=== PATIENT | male | born 1930 | race Caucasian/White ===

== ENCOUNTER 2017-04-27 16:01 | Emergency (ER) | payer MEDICARE, BC ==
[2017-04-27] MEDS ORDERED: Albuterol Sulfate 2.5 mg/3 ml Neb ONE (16:29)
[2017-04-27] MEDS ORDERED: Albuterol Sulfate 2.5 mg/0.5 ml Neb ONE (16:29)
[2017-04-27 16:52] LABS: Bilirubin Negative (Negative); Blood, Urine Moderate (Negative); Clarity TURBID (Clear); Glucose, Urine (Dipstick) Negative (Negative); Leukocyte Large (Negative); Nitrite Positive (Negative); Protein, Urine (Dipstick) Negative (Neg-Trace); Specific Gravity, Urine 1.019 (1.002-1.036); pH, Urine 5.5 (5.0-9.0)
[2017-04-27 16:53] LABS: Bacteria/HPF 4+ HPF (None Seen); Pathc Cast-AUWi Flag 1.49 (0-2.49); Squamous Epithelial 0-3 HPF (0-3)
[2017-04-27 16:57] LABS: Hemoglobin 11.9 g/dL (14.0-18.0); Mean Corpuscular Hemoglobin 32.1 pg (27.0-31.0); Mean Platelet Volume 9.3 fL (7.4-10.4); Platelet Count 106 thou/uL (130-400); RBC Distribution Width 13.5 % (11.5-14.5); Red Blood Cell (RBC) Count 3.71 mill/uL (4.70-6.10); White Blood Cell (WBC) Count 8.6 thou/uL (4.8-10.8)
[2017-04-27 17:04] LABS: Hyaline Casts/LPF 7-10 HYALINE CAST LPF (0-3 Hyaline); Renal Epithelial 0-3 HPF (0-3); Transitional Epithelial 0-3 HPF (0-3)
--- NOTE | 2017-04-27 17:05 | RAD ---
ONE VIEW CHEST: 04/27/17 COMPARISON: 06/12/14 HISTORY: Cough. Possible pneumonia. FINDINGS: Stable left sided defibrillator and sternotomy wires. There is atherosclerosis of the aorta. Normal c ardiac silhouette. The pulmonary vessels and hilum are normal. Right costophrenic angle is clear. Ple ural and parenchymal changes in the left lung base. No pneumothorax. No osseous abnormality. IMPRESSION: 1. Pleural and parenchymal changes of the left lung base. 2. Continued surveillance. POS: [facility]
[2017-04-27 17:22] LABS: Band 15 % (5-11); Elliptocytes SLIGHT = 2-5 cells (100X) (0-1/hpf); Lymphocytes 8 % (21-51); MDiff Complete? YES; Macrocytosis SLIGHT = 6-15 cells (100X) (0-5/hpf); Monocytes 12 % (0-10); Neutrophil 65 % (42-75); Ovalocytes SLIGHT = 2-5 cells (100X) (0-1/hpf); PLT Morphology Comment Appears Decreased; Polychromasia SLIGHT = 2-3 cells (100X) (0-2/hpf)
[2017-04-27 17:23] LABS: ALT (SGPT) 20 U/L (8-55); AST (SGOT) 30 U/L (5-34); Albumin 3.1 g/dL (3.4-4.8); Alkaline Phosphatase 130 U/L (40-150); Anion Gap 13 mmol/L (10-20); BUN (Urea Nitrogen) 32 mg/dL (8.4-25.7); Calc. Creatinine Clearance 0 mL/min (70-130); Calcium 9.1 mg/dL (7.8-10.44); Carbon Dioxide 23 mmol/L (23-31); Chloride 107 mmol/L (98-107); Estimated GFR-MDRD 71; Globulin 3.7 g/dL (2.4-3.5); Glucose 99 mg/dL (83-110); Potassium 3.9 mmol/L (3.5-5.1); Protein, Total 6.8 g/dL (5.8-8.1); Sodium 139 mmol/L (136-145)
[2017-04-27] MEDS ORDERED: Acetaminophen 500 MG TAB ONE (22:05)
[2017-04-28 11:25] LABS: Base Excess-Venous 2.3 mmol/L (-30.0-30.0); Bicarbonate (HCO3v) 26.3 mmol/L (1.0-85.0); CO2 Tension (PvCO2) 37.7 mmHg (41.0-51.0); Hemoglobin - Calc 12.4 g/dL (12.0-18.0); O2 Tension (PvO2) 66.7 mmHg (35.0-45.0); pH (Venous) 7.452 (7.35-7.45); vO2 Saturation-calc 93.9 % (0.0-100.0)
[2017-04-28 11:26] LABS: Calcium, Ionized 1.14 mmol/L (1.12-1.32); Lactate 1.09 mmol/L (0.50-2.20); Potassium 3.8 mmol/L (3.4-4.7); T. Carbon Dioxide 27.5 mmol/L (1.0-85.0)
== END 2017-04-27 22:11 | disposition home or self-care (01) ==
LOC: ERS 16:01
DX: J40 Bronchitis, not specified as acute or chronic (principal); N39.0 Urinary tract infection, site not specified; E03.9 Hypothyroidism, unspecified; E78.5 Hyperlipidemia, unspecified; F32.9 Major depressive disorder, single episode, unspecified; Z87.891 Personal history of nicotine dependence; Z79.82 Long term (current) use of aspirin; Z79.899 Other long term (current) drug therapy
CPT/HCPCS: 51701; 71045; 80053; 81003; 81015; 82330; 82435; 82803; 82947; 83605; 83880; 84132; 84295; 85014; 85025; 87077; 87086; 87186; 94640; 96361; 96374; J0696; J7611

== ENCOUNTER 2017-05-25 09:30 | Outpatient (CLI) | payer MEDICARE, BC ==
[~2017-05-25 09:30] MED LIST: Sodium Chloride 0.9% 15 ML NEB ONE
--- NOTE | 2017-05-25 12:04 | HP ---
DATE OF SERVICE: 05/25/2017 HISTORY OF PRESENT ILLNESS: Mr. Miguel Bishop Jr., is an 86-year-old gentleman, who presents to the [facility] Center for evaluation of a coccygeal ulceration. The patient resides at [facility]. [facility] was referred to the Wound Center by Dr. Faye. The patient has no other complaints today. He denies any fever or chills. PAST MEDICAL HISTORY: 1. Hypertension. 2. DJD. 3. Coronary artery disease. 4. Diabetes mellitus. 5. Gastroesophageal reflux disease. 6. Benign prostatic hypertrophy. 7. Congestive heart failure. 8. Anemia, iron deficiency. 9. History of atrial flutter/atrial fibrillation. 10. Hypothyroidism. PAST SURGICAL HISTORY: 1. Coronary artery bypass grafting on 3 separate occasions. 2. Bilateral knee replacement. 3. Appendectomy. 4. 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 MEDICATIONS: 1. Amiodarone. 2. Aspirin 81 mg. 3. Celexa. 4. Cranberry plus vitamin C. 5. Colace. 6. Fexofenadine. 7. Lasix. 8. Klor-Con. 9. Levothyroxine. 10. Lipitor. 11. Ocuvite. 12. Valsartan. 13. Vitamin D3. ALLERGIES: No known diagnosed allergies. SOCIAL HISTORY: Negative for current tobacco or ETOH use. FAMILY HISTORY: Noncontributory. PHYSICAL EXAMINATION: VITAL SIGNS: Temperature 98.1, pulse 77, respirations 22, blood pressure 103/51. GENERAL: An 86-year-old gentleman, lying on stretcher in examination room, in no acute distress. HEENT: Normocephalic, atraumatic. NECK: No nuchal rigidity. CHEST: Clear to auscultation. CARDIOVASCULAR: Regular. ABDOMEN: Soft. EXTREMITIES: No clubbing or cyanosis. BACK: A coccygeal ulceration is present, which measures approximately 3.0 x 2.0 cm. Necrotic and no nviable tissue present within the wound margins was debrided with an excisional full-thickness debrid ement. No purulent drainage is associated with the wound. No erythema of the skin surrounding the w ound is present. No maceration of the skin of the periwound is noted. ASSESSMENT AND PLAN: 1. Coccygeal ulceration as described above. Dressing changes of [place], 4 x 4s, and bordered gau ze will be initiated today. These dressing changes are to be performed on a daily basis after cleans ing and irrigation at [facility]. No antibiotics will be prescribed today based upon the appearance of the wound. I will see Mr. Bishop again in 2 weeks. Orders will be transmitted to [facility] for offloading of the coccygeal ulceration with position changes q.2 hours. 2. Hypertension. 3. Degenerative joint disease. 4. Coronary artery disease. 5. Diabetes mellitus. The patient's Accu-Chek in clinic today is 111. The patient has been told th at for optimal wound healing, his blood glucoses should remain below 150. 6. Gastroesophageal reflux disease. 7. Benign prostatic hypertrophy. 8. Congestive heart failure. 9. Anemia, iron deficiency. 10. History of atrial flutter/atrial fibrillation. 11. Hypothyroidism.
== END 2017-05-25 09:31 | disposition home or self-care (01) ==
LOC: WCC 09:30
PROVIDERS: ATTEND Family Medicine
DX: S31.000D Unspecified open wound of lower back and pelvis without penetration into retroperitoneum, subsequent encounter (principal)
CPT/HCPCS: 11042; 82962; 97139; G0463; 36416; 99204; A4218

== ENCOUNTER → 2018-02-13 | Day surgery (SDC) | payer MEDICARE, BC ==
[2018-02-08 12:35] VITALS: BMI 35.9
[~2018-02-13] MED LIST changes: +PROPOFOL 200 MG/20 ML VIAL ONE; -Sodium Chloride 0.9% 15 ML NEB ONE
[2018-02-13 08:06] LABS: INR-International Normal Ratio 1.5; PTT 30.2 SEC (22.9-36.1); Prothrombin Time 17.7 SEC (12.0-14.7)
[2018-02-13 08:09] LABS: #Eosinphils 0.4 thou/uL (0.0-0.7); #Lymphocytes 1.4 thou/uL (1.20-3.40); #Monocytes 0.9 thou/uL (0.11-0.59); #Neutrophils 3.4 thou/uL (1.40-6.50); %Basophils 0.4 % (0.0-1.0); %Eosinophils 6.4 % (0.0-10.0); %Lymphocytes 22.8 % (21.0-51.0); %Monocytes 14.9 % (0.0-10.0); %Neutrophils 55.5 % (42.0-75.0); Hemoglobin 11.2 g/dL (14.0-18.0); Mean Corpuscular HGB CONC 32.8 g/dL (32.0-36.0); Mean Corpuscular Hemoglobin 32.6 pg (27.0-31.0); Mean Corpuscular Volume 99.5 fL (78.0-98.0); Mean Platelet Volume 8.8 fL (7.4-10.4); Platelet Count 141 thou/uL (130-400); RBC Distribution Width 14.7 % (11.5-14.5); Red Blood Cell (RBC) Count 3.42 mill/uL (4.70-6.10); White Blood Cell (WBC) Count 6.2 thou/uL (4.8-10.8)
[2018-02-13 08:16] LABS: Anion Gap 12 mmol/L (10-20); BUN (Urea Nitrogen) 22 mg/dL (8.4-25.7); Calc. Creatinine Clearance 93 mL/min (70-130); Calcium 9.2 mg/dL (7.8-10.44); Carbon Dioxide 27 mmol/L (23-31); Chloride 108 mmol/L (98-107); Estimated GFR-MDRD 69; Glucose 82 mg/dL (83-110); Potassium 4.1 mmol/L (3.5-5.1); Sodium 143 mmol/L (136-145)
--- NOTE | 2018-02-13 09:31 | OP ---
DATE OF PROCEDURE: 02/14/2108 REFERRING PHYSICIAN: Dr. Tate Brown SURGEON: Dr. Eliu Jeffers PROCEDURE: Electrocardioversion report. REASON FOR PROCEDURE: Mr. Bishop is an 87-year-old man with history of CTI ablation, now atrial fibri llation were suppressed with amiodarone, but now persisting, here for a DANY guided cardioversion. TE E negative prior to procedure for any intracardiac clots. His LVEF is near normal, and moderate aortic stenosis is present. PROCEDURE: The patient received propofol by Anesthesia specialist. After adequate level of sedation achieved an ICD was interrogated, a 35 joule internal shock was delivered, which though appeared to convert the patient back to sinus rhythm. Following that, an external 350 joule shock was delivered, which promptly converted the patient back to sinus rhythm. Return rhythm is atrial ventricular pace d. The [place] atrial rate is very slow. The patient is atrial lead pacing dependent. CONCLUSION: 1. Successful internal cardioversion. 2. Followed by successful external cardioversion. PLAN: Continue amiodarone and Eliquis for now, continue monitoring of atrial arrhythmias. Amiodaron e has been increased to 100 mg a day.
--- NOTE | 2018-02-13 12:08 | OP ---
DATE OF PROCEDURE: 02/13/2018 ICD INTERROGATION REPROGRAMMING REPORT REASON FOR INTERROGATION: Mr. Bishop is here for DANY-guided cardioversion ____ prior attempt to inter nal cardioversion. PROCEDURE RESULTS: The ICD is a Medtronic Viva XT PICTURE COPYIST-D ICD the longevity to 7.4 ____. Lead paramet ers are adequate at 380 ohms, 437 ohms and 722 ohms respectively. The flutter wave sensing at 0.3, b ut after cardioversion, the sinus sensing is 1.4. The patient is ____ at that time. Interrogation o f rhythm reveals a sustained atrial arrhythmia ever since 11/2017. CONCLUSION: 1. Adequate functioning biventricular implantable cardioverter defibrillator. 2. Attempted internal cardioversion, failed but external cardioversion was successful. 3. Continue monitoring.
--- NOTE | 2018-02-13 16:47 | ECHO ---
CARDIOLOGY PROCEDURE NOTE: Date: 02/13/18 PROCEDURE: Transesophageal echocardiogram. REASON FOR PROCEDURE: Mr. Bishop is an 87-year-old man with prior history of atrial fibrillation with amiodarone suppressi on. Prior CTI ablation in September 2006. Biventricular ICD in place. Recurrent atrial fibrillation/flutt er on ICD interrogation. Here for DANY guided cardioversion less than 1 month after initiation of his anticoagulation. PROCEDURE: The patient received propofol by anesthesia specialist. The standard transesophageal echogram probe w as passed into esophagus without difficulty. Patient tolerated the procedure well. No complications n oted. RESULTS: The left atrium is severely enlarged, 6.2 cm in horizontal diameter. Left atrial appendage is well vi sualized, contains no clots. Left appendage velocities are 10 cm/second, which is low. 4/4 pulmonary veins were seen. Interatrial septum is free of defect. Mitral valve has mild regurgitation. Tricusp id valve has mild regurgitation. Pulmonary valve is not well visualized. Aortic valve has 3 leaflets, mildly calcified, and moderately stenosed. Valve area is 1.2 cm2, by planimetry. The pericardial space is without effusion. Visualized portions of descending and ascending aorta with out aneurysm or dissection, and only adherent atheroma noted. CONCLUSION: 1. No intracardiac clots. 2. Normal left ventricular systolic function. 3. Mild left ventricular hypertrophy. 4. Severe left atrial enlargement. 5. Mild mitral and tricuspid regurgitation. 6. Moderate aortic stenosis with a valve area of 1.2 cm2 present. No aortic regurgitation seen.
--- NOTE | 2018-02-13 19:19 | EKG ---
Test Reason : PREOP DANY/CARDIOVERS Blood Pressure : / mmHG Vent. Rate : 070 BPM Atrial Rate : 069 BPM P-R Int : 000 ms QRS Dur : 206 ms QT Int : 532 ms P-R-T Axes : 000 000 049 degrees QTc Int : 574 ms Electronic ventricular pacemaker When compared with ECG of 11-JUN-2014 00:21, No significant change was found Confirmed by ROXANNE JACKSON, SAngel ([id number]) on 02/13/2018 7:18:26 PM Referred By: [facility] Confirmed By:DR. Harini OLIVEIRA MD
== END ==
LOC: CCL 06:16
PROVIDERS: ATTEND Internal Medicine Cardiovascular Disease
PROC: B24BZZ4 Ultrasonography of Heart with Aorta, Transesophageal (ICD-10-PCS; principal; 2018-02-13)
PROC: 5A2204Z Restoration of Cardiac Rhythm, Single (ICD-10-PCS; 2018-02-13)
DX: I48.1 Persistent atrial fibrillation (principal); I25.5 Ischemic cardiomyopathy; I11.0 Hypertensive heart disease with heart failure; I50.22 Chronic systolic (congestive) heart failure; I25.10 Atherosclerotic heart disease of native coronary artery without angina pectoris; E11.9 Type 2 diabetes mellitus without complications; E78.5 Hyperlipidemia, unspecified; I44.2 Atrioventricular block, complete; K21.9 Gastro-esophageal reflux disease without esophagitis; I48.2 Chronic atrial fibrillation; M19.90 Unspecified osteoarthritis, unspecified site; I35.0 Nonrheumatic aortic (valve) stenosis; I34.0 Nonrheumatic mitral (valve) insufficiency; I36.1 Nonrheumatic tricuspid (valve) insufficiency; Z95.810 Presence of automatic (implantable) cardiac defibrillator; E66.01 Morbid (severe) obesity due to excess calories; Z68.35 Body mass index [BMI] 35.0-35.9, adult; Z86.73 Personal history of transient ischemic attack (TIA), and cerebral infarction without residual deficits; Z79.82 Long term (current) use of aspirin; Z79.01 Long term (current) use of anticoagulants; Z79.899 Other long term (current) drug therapy; Z91.041 Radiographic dye allergy status
CPT/HCPCS: 36415; 80048; 85025; 85610; 85730; 92960; 93005; 93010; 93312; J2704

== ENCOUNTER 2018-09-28 15:09 | Emergency (ER) | payer MEDICARE, BC ==
--- NOTE | 2018-09-28 16:37 | RAD ---
Right hip 2 views HISTORY: Right hip pain. FINDINGS: Extensive remodeling and chronic deformity of the femoral head. Only mild osteophytosis, cortes bchondral sclerosis, and joint space narrowing. Subtle nondisplaced oblique lucency at the subcapital superior margin of the femoral neck cortex. Possible extension of fracture to the inferior cortex. Osseous structures are demineralized. Exam very limited on the lateral view. IMPRESSION: Probable nondisplaced subcapital fracture right hip. CT of the hip could be performed for confirmation if needed. Probable osteonecrotic changes of the right femoral head. Osteoporosis. Findings were called to Dr. Robins in the emergency department at 1629 hours. Code CR
--- NOTE | 2018-09-28 16:39 | RAD ---
Right humerus 2 views HISTORY: Fall. Right arm injury. FINDINGS: Mild arthritic changes of the shoulder and elbow. Osseous structures are demineralized. Hum erus is intact. IMPRESSION: No acute osseous abnormalities are demonstrated. Osteoporosis.
[2018-09-28 17:12] LABS: Hemoglobin 10.4 g/dL (14.0-18.0); Mean Corpuscular HGB CONC 31.3 g/dL (32.0-36.0); Mean Corpuscular Hemoglobin 30.7 pg (27.0-31.0); Mean Corpuscular Volume 98.2 fL (78.0-98.0); Mean Platelet Volume 10.3 fL (7.4-10.4); Platelet Count 121 thou/uL (130-400); RBC Distribution Width 14.5 % (11.5-14.5); Red Blood Cell (RBC) Count 3.38 mill/uL (4.70-6.10); White Blood Cell (WBC) Count 14.4 thou/uL (4.8-10.8)
[2018-09-28 17:17] LABS: INR-International Normal Ratio 1.7; PTT 32.1 SEC (22.9-36.1)
--- NOTE | 2018-09-28 17:18 | CT ---
CT RIGHT FEMUR: Date: )09/28/18 Axial tomograms obtained from right hip through right femur with multiplanar reconstruction. INDICATION: Right hip fracture. Entire femur was requested. FINDINGS: Severe degenerative change at the right hip with subchondral cystic changes and hypertrophic changes from the femoral head and acetabulum. There is evidence of a mildly impacted subcapital fracture. Bon es are osteopenic. Femur otherwise appears intact. There is a knee prosthetic component involving the distal femur. IMPRESSION: Severe degenerative change at the right hip with subcapital fracture and deformity with severe subcho ndral cystic changes and hypertrophic changes. POS: [facility]
[2018-09-28 17:30] LABS: Band 2 % (5-11); Lymphocytes 11 % (21-51); MDiff Complete? YES; Monocytes 6 % (0-10); Neutrophil 81 % (42-75); Ovalocytes SLIGHT = 2-5 cells (100X) (0-1/hpf); Platelet Morphology Comment Appears Decreased; Polychromasia SLIGHT = 2-3 cells (100X) (0-2/hpf); Schistocytes SLIGHT = 2-5 cells (100X) (0-1/hpf)
[2018-09-28 17:34] LABS: Anion Gap 13 mmol/L (10-20); BUN (Urea Nitrogen) 41 mg/dL (8.4-25.7); Calc. Creatinine Clearance 0 mL/min (70-130); Calcium 9.6 mg/dL (7.8-10.44); Carbon Dioxide 24 mmol/L (23-31); Chloride 113 mmol/L (98-107); Estimated GFR-MDRD 48; Glucose 117 mg/dL (83-110); Potassium 3.9 mmol/L (3.5-5.1); Sodium 146 mmol/L (136-145)
== END 2018-09-28 19:34 | disposition home or self-care (01) ==
LOC: ERS 15:09
DX: S72.011A Unspecified intracapsular fracture of right femur, initial encounter for closed fracture (principal); I25.10 Atherosclerotic heart disease of native coronary artery without angina pectoris; I25.2 Old myocardial infarction; E11.9 Type 2 diabetes mellitus without complications; E03.9 Hypothyroidism, unspecified; E78.5 Hyperlipidemia, unspecified; F32.9 Major depressive disorder, single episode, unspecified; F41.9 Anxiety disorder, unspecified; Z79.82 Long term (current) use of aspirin; Z79.899 Other long term (current) drug therapy; Z79.01 Long term (current) use of anticoagulants; X58.XXXA Exposure to other specified factors, initial encounter
CPT/HCPCS: 36415; 80048; 85025; 85610; 85730; 86850; 86900; 86901; 93005

== ENCOUNTER 2018-10-09 12:10 | Inpatient (IN) | payer MEDICARE, BC ==
[2018-10-09 12:50] LABS: Hemoglobin 9.1 g/dL (14.0-18.0); Mean Corpuscular HGB CONC 29.3 g/dL (32.0-36.0); Mean Corpuscular Hemoglobin 29.3 pg (27.0-31.0); Mean Platelet Volume 9.9 fL (7.4-10.4); Platelet Count 207 thou/uL (130-400); RBC Distribution Width 14.5 % (11.5-14.5)
[2018-10-09 12:51] LABS: #Eosinphils 0.1 thou/uL (0.0-0.7); #Lymphocytes 1.1 thou/uL (1.20-3.40); #Monocytes 1.1 thou/uL (0.11-0.59); #Neutrophils 11.7 thou/uL (1.40-6.50); %Basophils 0.1 % (0.0-1.0); %Eosinophils 0.5 % (0.0-10.0); %Lymphocytes 8.1 % (21.0-51.0); %Monocytes 7.5 % (0.0-10.0); %Neutrophils 83.7 % (42.0-75.0)
[2018-10-09 13:03] LABS: Acetaminophen Less than 6.0 mcg/mL (10.0-30.0); Alcohol Less than 10 mg/dL (Less than 10); CK (CPK) 284 U/L (30-200); Salicylate Less than 8.0 mg/dL (15.0-30.0)
[2018-10-09 13:06] LABS: Anisocytosis SLIGHT = 6-15 cells (100X) (0-5/hpf)
[2018-10-09 13:07] LABS: Platelet Morphology Comment Appears Adequate
[2018-10-09 13:08] LABS: Elliptocytes SLIGHT = 2-5 cells (100X) (0-1/hpf); Hypochromia SLIGHT = 6-15 cells (100X) (0-5/hpf)
[2018-10-09 13:22] LABS: ALT (SGPT) 15 U/L (8-55); AST (SGOT) 17 U/L (5-34); Albumin 2.6 g/dL (3.4-4.8); Alkaline Phosphatase 109 U/L (40-150); Anion Gap 12 mmol/L (10-20); BUN (Urea Nitrogen) 66 mg/dL (8.4-25.7); Bilirubin, Total 0.6 mg/dL (0.2-1.2); Calc. Creatinine Clearance 0 mL/min (70-130); Calcium 9.1 mg/dL (7.8-10.44); Carbon Dioxide 24 mmol/L (23-31); Chloride 129 mmol/L (98-107); Estimated GFR-MDRD 23; Globulin 3.8 g/dL (2.4-3.5); Glucose 120 mg/dL (83-110); Potassium 3.9 mmol/L (3.5-5.1); Protein, Total 6.4 g/dL (5.8-8.1); Sodium 161 mmol/L (136-145)
[2018-10-09] MEDS ORDERED: Piperacillin/Tazobactam 4.5 GM VIAL ONE (13:22)
[2018-10-09 13:34] LABS: CKMB 2.7 ng/mL (0-6.6)
--- NOTE | 2018-10-09 13:36 | RAD ---
CHEST 1 VIEW: Date: 10/09/18 HISTORY: Hypotension. COMPARISON: Radiograph dated 04/27/17. FINDINGS: Lungs are hypoinflated. There is some scarring and atelectatic changes in the left lung base. No pneu mothorax. No focal air space consolidation. Heart size is enlarged. The AICD/pacer is similar. Multip le midline sternotomy wires. IMPRESSION: Similar examination of the chest in 2018. No acute intrathoracic abnormality. POS: [facility]
[2018-10-09 14:19] LABS: Anion Gap 14 mmol/L (10-20); BUN (Urea Nitrogen) 65 mg/dL (8.4-25.7); Calc. Creatinine Clearance 0 mL/min (70-130); Calcium 8.9 mg/dL (7.8-10.44); Carbon Dioxide 24 mmol/L (23-31); Chloride 130 mmol/L (98-107); Estimated GFR-MDRD 24; Glucose 108 mg/dL (83-110); Potassium 3.9 mmol/L (3.5-5.1); Sodium 164 mmol/L (136-145)
--- NOTE | 2018-10-09 14:42 | CT ---
Head CT without contrast 10/09/2018: COMPARISON: 04/08/2012 HISTORY: Altered mental status TECHNIQUE: Axial CT imaging at 5 mm intervals from vertex through skull base without contrast FINDINGS: Imaged paranasal sinuses and mastoid air cells are well aerated. No displaced calvarial fra cture noted. There is extensive linear calcification noted throughout the periventricular, deep, and subcortical w clarence matter bilaterally. Similar extensive linear areas of calcification are noted within the bilateral cerebellar hemispheres. There is also linear calcification throughout the basal ganglia, th taran, and cerebral peduncles bilaterally, all findings stable when compared to prior imaging. There is no intracranial hemorrhage, midline shift, or mass effect. Stable cerebral volume loss. Stab le encephalomalacia noted within the anterior and inferior aspect of the right frontal lobe. There is stable prominence of the ventricular system associated with cerebral volume loss, including the fourth ventricle, third ventricle and bilateral lateral ventricles. IMPRESSION: Stable head CT as detailed above. No acute findings are seen. No evidence for intracrania l hemorrhage.
[2018-10-09 14:54] LABS: Bilirubin Small (Negative); Blood, Urine Large (Negative); Glucose, Urine (Dipstick) Negative (Negative); Leukocyte Moderate (Negative); Nitrite Negative (Negative); Protein, Urine (Dipstick) Trace mg/dL (Neg-Trace)
[2018-10-09 14:57] LABS: Clarity Clear (Clear)
[2018-10-09 15:01] LABS: Bacteria/HPF 2+ HPF (None Seen); Squamous Epithelial 0-3 HPF (0-3)
[2018-10-09 15:06] LABS: Amphetamine Not Detected (NotDetected); Barbiturates Screen Not Detected (NotDetected); Benzodiazepine Screen Not Detected (NotDetected); Cocaine Metabolite Screen Not Detected (NotDetected); Medtox Control Line Valid? VALID (VALID); Medtox Reader # READER 4; Methadone Not Detected (NotDetected); Methamphetamine Not Detected (NotDetected); Opiate Screen Not Detected (NotDetected); Oxycodone Screen Not Detected (NotDetected); Phencyclidine (PCP) Not Detected (NotDetected); THC/Cannabinoid Screen Not Detected (NotDetected); Tricyclic Screen Not Detected (NotDetected)
[2018-10-09 16:20] LABS: Troponin I 0.125 ng/mL (< 0.028)
--- NOTE | 2018-10-09 16:20 | PDOC.FPRHP ---
- History of Present Illness Chief Complaint: altered mental status, hypotension History of Present Illness: Patient is an 87-y.o. Male from [facility] w/ Dementia, PMHx of a-fib, CHF, hypothyroid, T2DM, MICHELLE, HLD, and HTN who was brought here due to altered mental status and hypotension. Per long-term nurse, he was not at his mental status baseline and was having BPs in 80s/40s. His heart rate was also fluctuating between 40-90 bpms. Prior to today's events, he had no acute events overnight. He has remained afebrile, but less responsive and interactive. At baseline the patient is conversational, answers questions, and has garbled speech. Per daughter who is HPOA, patient has had issues with getting properly hydrated at the long-term. He only gets fluids w/ meals and his liquids are thickened. Interval history: Patient came to the ER two weeks ago and subcapsular hip fx was seen on R. This was managed conservatively. Last week patient began desatting into the 80s and was given incentive spirometry to prevent atelectasis from immobility. He then experienced increased pain and was given tramadol. He has also been having increased O2 requirements and lasix was increased as well. ED Course: Patient brought by EMS from long-term. Hypotensive to 80/50, fluid bolus NS given, pressures increased to 100/60. Would like to admit to telemetry. Zosyn x1 given. - Allergies/Adverse Reactions Allergies Allergy/AdvReac Type Severity Reaction Status Date / Time Iodinated Contrast Media Allergy Verified 02/08/18 12:35 [Iodinated Contrast Media - IV Dye] iodine Allergy Verified 02/08/18 12:35 - Home Medications Medication Instructions Recorded Confirmed Type Amiodarone HCl 200 mg PO DAILY 12/07/13 02/13/18 History Aspirin [Ecotrin Low Strength] 81 mg PO DAILY 12/07/13 02/13/18 History Atorvastatin Calcium [Lipitor] 40 mg PO DAILY 12/07/13 02/13/18 History Cholecalciferol [Vitamin D3] 1,000 unit PO DAILY 12/07/13 02/13/18 History Furosemide [Lasix] 40 mg PO DAILY 12/07/13 02/13/18 History Levothyroxine Sodium 50 mcg PO DAILY 12/07/13 02/13/18 History Fexofenadine HCl [Denisa] 180 mg PO DAILY 06/11/14 02/13/18 History Potassium Chloride 10 meq PO DAILY 06/11/14 02/13/18 History Apixaban [Eliquis] 5 mg PO BID 02/08/18 02/13/18 History Bisacodyl [Dulcolax] 10 mg PO DAILY PRN 02/08/18 02/08/18 History Citalopram Hydrobromide 20 mg PO DAILY 02/08/18 02/13/18 History [Citalopram HBr] Docusate Sodium 100 mg PO BID 02/08/18 02/08/18 History Methenamine/Sodium Salicylate 2 tablet PO DAILY 02/08/18 02/13/18 History [Cystex Plus] Multivitamin [Multivitamins] 1 tablet PO DAILY 02/08/18 02/13/18 History Naproxen 250 mg PO BID PRN 02/08/18 02/08/18 History Nystatin 1 applic TOP PRN PRN 02/08/18 02/08/18 History Olmesartan Medoxomil 20 mg PO HS 02/08/18 02/13/18 History - History PMHx: - A-fib (on anticoagulation: eliquis & ASA) - PSHx: - Pacemaker in place FHx: Social: - Lives in [facility] long-term - Vital signs BP: 98/55, Pulse: 70, Resp: 17, O2 sat: 94 on 2L Oxygen, Time: 10/09/2018 13:30 - Physical Exam Constitutional: other (Awake, AxO x1. Speech difficult to understand.) Heart: RRR, normal S1/S2 Lungs: CTAB Abdomen: soft, non-tender FMR H&P: Results - Labs Result Diagrams: 10/09/18 12:37 10/09/18 17:31 Lab results: WBC 14.0 thou/uL (4.8-10.8) H 10/09/18 12:37 Hgb 9.1 g/dL (14.0-18.0) L 10/09/18 12:37 Hct 31.0 % (42.0-52.0) L 10/09/18 12:37 MCV 100.0 fL (78.0-98.0) H 10/09/18 12:37 Plt Count 207 thou/uL (130-400) 10/09/18 12:37 Neutrophils % 83.7 % (42.0-75.0) H 10/09/18 12:37 Sodium 164 mmol/L (136-145) H* 10/09/18 13:44 Potassium 3.9 mmol/L (3.5-5.1) 10/09/18 13:44 Chloride 130 mmol/L (98-107) H* 10/09/18 13:44 Carbon Dioxide 24 mmol/L (23-31) 10/09/18 13:44 BUN 65 mg/dL (8.4-25.7) H 10/09/18 13:44 Creatinine 2.57 mg/dL (0.7-1.3) H 10/09/18 13:44 Glucose 108 mg/dL (83-110) 10/09/18 13:44 Lactic Acid 1.5 mmol/L (0.5-2.2) 10/09/18 12:37 Calcium 8.9 mg/dL (7.8-10.44) 10/09/18 13:44 Total Bilirubin 0.6 mg/dL (0.2-1.2) 10/09/18 12:37 AST 17 U/L (5-34) 10/09/18 12:37 ALT 15 U/L (8-55) 10/09/18 12:37 Alkaline Phosphatase 109 U/L (40-150) 10/09/18 12:37 Creatine Kinase 284 U/L (30-200) H 10/09/18 12:37 CK-MB (CK-2) 2.7 ng/mL (0-6.6) 10/09/18 12:37 B-Natriuretic Peptide 339.7 pg/mL (0-100) H 10/09/18 12:37 Serum Total Protein 6.4 g/dL (5.8-8.1) 10/09/18 12:37 Albumin 2.6 g/dL (3.4-4.8) L 10/09/18 12:37 Urine Ketones 15 mg/dL (Negative) A 10/09/18 14:35 Urine Blood Large (Negative) A 10/09/18 14:35 Urine Nitrite Negative (Negative) 10/09/18 14:35 Ur Leukocyte Esterase Moderate (Negative) H 10/09/18 14:35 Urine RBC 4-6 HPF (0-3) A 10/09/18 14:35 Urine WBC 7-10 HPF (0-3) A 10/09/18 14:35 Ur Squamous Epith Cells 0-3 HPF (0-3) 10/09/18 14:35 Urine Bacteria 2+ HPF (None Seen) A 10/09/18 14:35 - EKG Interpretation EKG: compared to previous: the same. AV-dual pacing. - Radiology Interpretation CT scan - head Status: report reviewed by me Additional comment: negative Chest x-ray Status: report reviewed by me Additional comment: negative FMR H&P: A/P - Problem List (1) Acute encephalopathy Current Visit: Yes Status: Acute Code(s): G93.40 - ENCEPHALOPATHY, UNSPECIFIED (2) CHF (congestive heart failure) Current Visit: Yes Status: Acute Code(s): I50.9 - HEART FAILURE, UNSPECIFIED (3) Hypothyroidism Current Visit: Yes Status: Acute Code(s): E03.9 - HYPOTHYROIDISM, UNSPECIFIED (4) Anemia Current Visit: Yes Status: Acute Code(s): D64.9 - ANEMIA, UNSPECIFIED (5) Atrial fibrillation Current Visit: Yes Status: Acute Code(s): I48.91 - UNSPECIFIED ATRIAL FIBRILLATION (6) Acute kidney injury Current Visit: Yes Status: Acute Code(s): N17.9 - ACUTE KIDNEY FAILURE, UNSPECIFIED (7) Type 2 diabetes mellitus Current Visit: Yes Status: Acute (8) Generalized anxiety disorder Current Visit: Yes Status: Acute Code(s): F41.1 - GENERALIZED ANXIETY DISORDER (9) Major depressive disorder Current Visit: Yes Status: Acute Code(s): F32.9 - MAJOR DEPRESSIVE DISORDER , SINGLE EPISODE, UNSPECIFIED (10) Chronic hypernatremia Current Visit: Yes Status: Acute Code(s): E87.0 - HYPEROSMOLALITY AND HYPERNATREMIA (11) Open wound of right heel Current Visit: Yes Status: Acute Code(s): S91.301A - UNSPECIFIED OPEN WOUND , RIGHT FOOT, INITIAL ENCOUNTER - Plan 87-y.o. male w/ complex PMHx, admitted for: 1. Acute encephalopathy 2/2 UTI - UTI is most likely source at this point. UA w/ abnormalities. - Continue zosyn for empiric coverage 2. Hypernatremia, in setting of severe dehydration - Sodium very high at 164. Began fluids and recheck was 163 - 1/2 NS MIVF. - Urine osm pending. - BMP checks q4h overnight. We do not want to drop sodium more than 10 mEq in next 24 hours. If dropping more than this, consider holding fluids for a time or increase concentration to 0.9% NS to continue fluid resuscitation. The risk of decreasing sodium too quickly in a patient who has had hypernatremia for more than 48 hours (as the case here) is cerebral edema. 3. DICK - Creatinine has doubled. BUN/Cr ~60 indicating pre-renal etiology. Free water deficit calculated to ~11 L. - Will fluid resuscitate. 4. A-fib - Continue anticoagulation of eliquis and aspirin - Continuous telemetry. 5. CHF - ECHO - Continue home amiodarone - Trop elevated at 0.1. Trend x2. 6. Hypothyroidism - Continue home synthroid 7. Type 2 diabetes - Insulin sliding scale - Carb controlled diet, thickened liquids 8. MICHELLE, MDD - Hold antidepressant for now. May consider restarting tomorrow. 9. Dementia - continue home donepizil, memantine 10. Chronic anemia 2/2 vitamin deficiencies - Continue home B12 vitamin 11. Right heel wound - Assess tomorrow and consider wound care consult. Code status: DNR/DNI Ginger Wild MD PGY-1 Disposition/LOS: Admit to inpatient. FMR H&P: Upper Level - Plan Date/Time: 10/09/18 1618 87 yo gentleman with pmhx of dementia and recent hip fracture who resides at [facility] presents today with AMS and hypotension, admitted for acute encephalopathy 2/2 hypernatremia vs UTI and DICK on CKD. Vitals: 90/29y695l/60s HR 70 RR 19 PE: A&ox1 NAD Dry MM Abdomen nontender Systolic murmur Decreased breath sounds bilaterally 2+ pulses bilaterally, no edema Labs: Wbc 14, H/H 9.1/31 Na 164, Chl 130 BUN/Cr 65/2.57 glucose 108 CK 284 trop .108 BNP 339 UA: +LE, ketones, blood, bacteria A/P: Acute encephalopathy most likely 2/2 hypernatremia vs UTI- -pt is alert and oriented x 1; unclear baseline. -Other considerations include: uremia and CHF; head ct negative for bleed or tumor; pt has a hx of afib on anticoagulation, and it was difficult to assess if pt has stroke related sx as he only responsive to some commands, pt does have rising troponins, but EKG unchanged from prior , pt has hypothyroidism and tsh was ordered; pt also not hypoglycemic Hypernatremia, chronic -pt had a sodium of 146 on 09/28 when pt was here in the ED for a hip fracture -Pt is hypovolemic, ordered urine osm to assess etiology; suspect related to decreased PO intake and insensible losses. Will replete with 1 additional L of normal saline as pt already received 1L in the ER, and then likely transition to D5 NS @ 150 ml/hr. Free water deficit ~11L. Will recheck BMP q4h. UTI- -Will treat UTI with zosyn until urine culture is back, can deescalate based on cx and sensitivities -Urine cx on 04/2018 was positive for E. coli pansensitive except for Bactrim Atypical chest pain- -Suspect demand ischemia, will trend troponins, morphine, nitro prn. EKG compared to last one was the same. CHF- -systolic per Echo in 2014 (EF 30-35% at that time) -elevated BNP. Will monitor. Biventricularly paced. Type 2 Diabetes- -sliding scale insulin started, will check blood glucose BID, not currently on medications, not hypoglycemic Hypothyroidism- -will check a tsh and restart home levothyroxrine of 50mg daily HLD- -will restart atorvastatin 40mg daily HTN- -held bp meds as pt is hypotensive Afib on anticoagulation- -continued eliquis and amiodarone Dementia- -will restart donepezil and memantine Efra Quiroz MD, PGY3 have evaluated this patient and agree with findings/ plan as outlined by physician general internal medicine resident. Pertinent changes/additions are listed here.
[2018-10-09] MEDS ORDERED: Acetaminophen 325 MG TAB PO PRN (16:47)
[2018-10-09] MEDS ORDERED: Ondansetron ODT 4 MG TAB PO PRN (16:47)
[2018-10-09] MEDS ORDERED: HumaLOG 300 UNITS/3 ML VIAL SC PRN (16:47)
[2018-10-09] MEDS ORDERED: Dextrose 5% in Water 1,000 ML IV PRN (16:47)
[2018-10-09] MEDS ORDERED: Dextrose 50% Abboject 50 ML SYRINGE SLOW IVP PRN (16:47)
[2018-10-09] MEDS ORDERED: Guaifenesin DM 100-10/5 ML UDCUP PO PRN (16:47)
[2018-10-09] MEDS ORDERED: Nystatin Powder 15 GM BOT TOP PRN (16:58)
[2018-10-09] MEDS ORDERED: Sodium Chloride 0.9% 1,000 ML IV SCH (17:00)
[2018-10-09 17:56] LABS: Anion Gap 14 mmol/L (10-20); BUN (Urea Nitrogen) 67 mg/dL (8.4-25.7); Calc. Creatinine Clearance 0 mL/min (70-130); Calcium 9.2 mg/dL (7.8-10.44); Carbon Dioxide 23 mmol/L (23-31); Chloride 130 mmol/L (98-107); Estimated GFR-MDRD 23; Glucose 101 mg/dL (83-110); Sodium 163 mmol/L (136-145)
[2018-10-09] MEDS ORDERED: Piperacillin/Tazobactam 3.375 GM in Sodium Chloride 0.9% 100 ML IVPB SCH (18:00)
[2018-10-09] MEDS ORDERED: Dextrose 5 %-0.45 % NaCl 1,000 ML IV SCH ×2 (18:15→23:25)
[2018-10-09 19:17] LABS: Troponin I 0.108 ng/mL (< 0.028)
--- NOTE | 2018-10-09 19:19 | PDOC.EVN ---
Event Note - Event Note Event Note: Spoke with nursing staff concerning Mr. Bishop's fluid resuscitation and heart failure. At this time will continue D5 1/2 NS 150 mls/hr as on his pulmonary exam he did not appear to be fluid overloaded, oxygen saturation 96%. He is DNR. Will order CXR to monitor for fluid overload at 0300 10/10/18. Appreciate nursing staff's monitoring of patient's respiratory status. Shekhar Garcia, DO
[2018-10-09] MEDS: Donepezil HCl 10 MG TAB PO SCH (20:52)
[2018-10-09] MEDS: Apixaban 5 MG TAB PO SCH (20:52)
[2018-10-09] MEDS: Piperacillin/Tazobactam 3.375 GM in Sodium Chloride 0.9% 100 ML IVPB SCH (20:52)
[2018-10-09 21:22] LABS: Anion Gap 17 mmol/L (10-20); BUN (Urea Nitrogen) 69 mg/dL (8.4-25.7); Calc. Creatinine Clearance 36 mL/min (70-130); Carbon Dioxide 21 mmol/L (23-31); Chloride 129 mmol/L (98-107); Estimated GFR-MDRD 25; Glucose 112 mg/dL (83-110); Potassium 3.9 mmol/L (3.5-5.1); Sodium 163 mmol/L (136-145)
--- NOTE | 2018-10-10 00:32 | PDOC.EVN ---
Event Note - Event Note Event Note: On repeat BMP Na 163, no change and Cl- went down 1 point, 129. Checked on pt ~ 2315, pulmonary exam was positive for crackles in the bibasilar/posterior aspects of the lungs. Wheezing or work of breathing was not apparent on exam. Oxygen saturation 96%. AAO x 1 to person. Decreased D5 1/2 NS to 75 mls/hr due to what seems like beginning of pulmonary edema on exam. Pending CXR at 0300 to quantify cardiopulm status. Will continue to monitor with [place], BMP q4h. Shekhar Garcia DO
[2018-10-10 01:42] LABS: Anion Gap 13 mmol/L (10-20); BUN (Urea Nitrogen) 67 mg/dL (8.4-25.7); Calc. Creatinine Clearance 39 mL/min (70-130); Calcium 9.1 mg/dL (7.8-10.44); Carbon Dioxide 22 mmol/L (23-31); Chloride 131 mmol/L (98-107); Estimated GFR-MDRD 27; Glucose 129 mg/dL (83-110); Potassium 3.8 mmol/L (3.5-5.1); Sodium 162 mmol/L (136-145)
[2018-10-10] MEDS: Piperacillin/Tazobactam 3.375 GM in Sodium Chloride 0.9% 100 ML IVPB SCH ×4 (01:55→20:22)
[2018-10-10] MEDS: Dextrose 5 %-0.45 % NaCl 1,000 ML IV SCH ×2 (03:08→05:55)
[2018-10-10 06:09] LABS: #Eosinphils 0.2 thou/uL (0.0-0.7); #Lymphocytes 1.1 thou/uL (1.20-3.40); #Monocytes 0.9 thou/uL (0.11-0.59); #Neutrophils 8.3 thou/uL (1.40-6.50); %Basophils 0.1 % (0.0-1.0); %Eosinophils 1.8 % (0.0-10.0); %Lymphocytes 10.6 % (21.0-51.0); %Monocytes 8.4 % (0.0-10.0); %Neutrophils 79.1 % (42.0-75.0); Elliptocytes SLIGHT = 2-5 cells (100X) (0-1/hpf); MDiff Complete? YES; Mean Corpuscular Hemoglobin 30.1 pg (27.0-31.0); Mean Platelet Volume 10.4 fL (7.4-10.4); Platelet Count 175 thou/uL (130-400); RBC Distribution Width 14.7 % (11.5-14.5); Red Blood Cell (RBC) Count 3.32 mill/uL (4.70-6.10); White Blood Cell (WBC) Count 10.5 thou/uL (4.8-10.8)
[2018-10-10 06:24] LABS: ALT (SGPT) 14 U/L (8-55); AST (SGOT) 20 U/L (5-34); Albumin 2.6 g/dL (3.4-4.8); Alkaline Phosphatase 109 U/L (40-150); Anion Gap 13 mmol/L (10-20); BUN (Urea Nitrogen) 63 mg/dL (8.4-25.7); Bilirubin, Total 0.7 mg/dL (0.2-1.2); Calc. Creatinine Clearance 43 mL/min (70-130); Calcium 9.2 mg/dL (7.8-10.44); Carbon Dioxide 24 mmol/L (23-31); Chloride 130 mmol/L (98-107); Estimated GFR-MDRD 30; Globulin 3.8 g/dL (2.4-3.5); Glucose 132 mg/dL (83-110); Potassium 3.8 mmol/L (3.5-5.1); Protein, Total 6.4 g/dL (5.8-8.1); Sodium 163 mmol/L (136-145)
--- NOTE | 2018-10-10 07:31 | RAD ---
AP VIEW CHEST: INDICATIONS: History of heart failure. COMPARISON: Prior exam dated 10/09/2018. FINDINGS: The pleural parenchymal opacity along the left lung base is stable. Midline sternotomy changes, mild cardiomegaly, and AICD are similar appearing. The right lung is clear. Osseous structures are unch anged. IMPRESSION: 1. Persistent pleural parenchymal opacity of the left lower lobe. Recommend correlation for any sig ns or symptoms of pneumonia. 2. Stable cardiomegaly, post coronary artery bypass grafting change and automatic implantable cardio verter-defibrillator. POS: [facility]
[2018-10-10] MEDS ORDERED: Dextrose 5% in Water 1,000 ML IV SCH ×3 (08:30→14:08)
--- NOTE | 2018-10-10 08:36 | PDOC.FM ---
- Subjective Subjective: Patient is stable this AM. VSS, Afebrile, although he did have one low temp of 97.4 F at 1915 on 10/09. He mentions he is having pain but is unable to tell me where. Overnight he had continued high sodium and chloride values despite D5W 0.45% NS. CXR was ordered overnight for concern of fluid overload in setting of CHF. However, CXR appeared stable as compared to previous. - Objective Vital Signs & Weight: Vital Signs (12 hours) Temp Pulse Resp BP Pulse Ox 10/10/18 07:56 98 F 70 18 100/49 L 98 10/10/18 04:00 97.6 F 69 16 94/44 L 96 10/10/18 00:00 98.7 F 72 17 100/47 L 98 Weight Weight 120.882 kg I&O: 10/09/18 10/10/18 10/11/18 06:59 06:59 06:59 Intake Total 1219 Balance 1219 Result Diagrams: 10/10/18 04:42 10/10/18 10:57 EKG Reviewed by me: Yes (Telemetry overnight stable. Biventricular pacing.) Radiology Reviewed by me: Yes (CXR: stable cardiomegaly, L lower pleural effusion) Phys Exam - Physical Examination He appears dry on exam, lips cracked, mouth open. Respiratory: no wheezing, no rales, clear to auscultation bilateral (although somewhat difficult to auscultate due to body habitus) Cardiovascular: RRR (3/6 systolic murmur heard, heard on previous exam) Gastrointestinal: soft, non-tender, positive bowel sounds Musculoskeletal: no edema, pulses present (pressure dressing on R heel, padded boot on L foot for wound prophylaxis) Deviation from normal: significant bruising along arms bilaterally, likely 2/2 anticoagulation Dx/Plan (1) Acute encephalopathy Code(s): G93.40 - ENCEPHALOPATHY, UNSPECIFIED Status: Acute (2) CHF (congestive heart failure) Code(s): I50.9 - HEART FAILURE, UNSPECIFIED Status: Acute (3) Hypothyroidism Code(s): E03.9 - HYPOTHYROIDISM, UNSPECIFIED Status: Acute (4) Anemia Code(s): D64.9 - ANEMIA, UNSPECIFIED Status: Acute (5) Atrial fibrillation Code(s): I48.91 - UNSPECIFIED ATRIAL FIBRILLATION Status: Acute (6) Acute kidney injury Code(s): N17.9 - ACUTE KIDNEY FAILURE, UNSPECIFIED Status: Acute (7) Type 2 diabetes mellitus Status: Acute (8) Generalized anxiety disorder Code(s): F41.1 - GENERALIZED ANXIETY DISORDER Status: Acute (9) Major depressive disorder Code(s): F32.9 - MAJOR DEPRESSIVE DISORDER, SINGLE EPISODE, UNSPECIFIED Status : Acute (10) Chronic hypernatremia Code(s): E87.0 - HYPEROSMOLALITY AND HYPERNATREMIA Status: Acute (11) Open wound of right heel Code(s): S91.301A - UNSPECIFIED OPEN WOUND, RIGHT FOOT, INITIAL ENCOUNTER Status: Acute - Plan Plan: 87-y.o. male w/ complex PMHx, admitted for: 1. Acute encephalopathy 2/2 UTI - UTI is most likely source at this point. UA w/ abnormalities including blood. - Continue zosyn for empiric coverage - Blood in urine, however, [facility] does not wish to pursue work up for patient at this time. 2. Hypernatremia, in setting of severe dehydration - D5W @ 120 mL/hr - Urine osm 437. Calculated serum osm 352 on admission. - BMP checks q4h. 3. DICK - Likely pre-renal etiology. Creatinine improving. - Fluid resuscitate. 4. A-fib - Continue anticoagulation of eliquis and aspirin - Continuous telemetry. 5. CHF - ECHO EF 30-35% - Continue home amiodarone 6. Hypothyroidism - Continue home synthroid 7. Type 2 diabetes - Insulin sliding scale - Carb controlled diet, thickened liquids 8. MICHELLE, MDD - Hold antidepressant for now. May consider restarting tomorrow. 9. Dementia - continue home donepizil, memantine 10. Chronic anemia 2/2 vitamin deficiencies - Continue home B12 vitamin. Hgb improved today from yesterday. 11. Right heel wound - Assess tomorrow and consider wound care consult. 12. Swallow dysfunction - Speech eval rec NPO until midnight. Repeat swallow study in AM. Consider thickened liquid diet pending repeat study. Code status: DNR/DNI Ginger Wild MD PGY-1 Disposition/LOS: Continue to monitor as inpatient.
[2018-10-10] MEDS: Atorvastatin Calcium 40 MG TAB PO SCH (09:37)
[2018-10-10] MEDS: Cyanocobalamin (Vitamin B-12) 1,000 MCG TAB PO SCH (09:38)
[2018-10-10] MEDS: Aspirin 81 mg Enteric Coated Tablet PO SCH (09:39)
[2018-10-10] MEDS: Apixaban 5 MG TAB PO SCH ×2 (09:39→20:23)
[2018-10-10] MEDS: Amiodarone 200 MG TAB PO SCH (09:39)
[2018-10-10] MEDS: Levothyroxine Sodium 50 MCG TAB PO SCH (09:39)
[2018-10-10] MEDS: Polyethylene Glycol 3350 17 GM Packet PO SCH (09:40)
[2018-10-10 09:46] LABS: Anion Gap 12 mmol/L (10-20); BUN (Urea Nitrogen) 57 mg/dL (8.4-25.7); Calc. Creatinine Clearance 48 mL/min (70-130); Calcium 8.9 mg/dL (7.8-10.44); Carbon Dioxide 24 mmol/L (23-31); Chloride 130 mmol/L (98-107); Estimated GFR-MDRD 34; Glucose 136 mg/dL (83-110); Potassium 3.7 mmol/L (3.5-5.1); Sodium 162 mmol/L (136-145)
[2018-10-10 11:32] LABS: Anion Gap 13 mmol/L (10-20); BUN (Urea Nitrogen) 55 mg/dL (8.4-25.7); Calc. Creatinine Clearance 51 mL/min (70-130); Carbon Dioxide 22 mmol/L (23-31); Chloride 131 mmol/L (98-107); Estimated GFR-MDRD 36; Glucose 132 mg/dL (83-110); Potassium 3.8 mmol/L (3.5-5.1); Sodium 162 mmol/L (136-145)
--- NOTE | 2018-10-10 13:18 | PRG ---
DATE OF SERVICE: 10/10/2018 Mr. Bishop is an 87-year-old [facility] patient with some dementia, who was admitted with a serum sodium of 163. Initial fluids of normal saline did not reduce his sodium, so he has been switched to a D5W infusion. He still, however, has a sodium of 162. We will continue with his current management. He was also found to have a large amount of blood in his urinalysis. I doubt that we should be aggressive in our workup for this problem as he is also at this time being treated for urinary tract infection. His vital signs are currently stable with a blood pressure of 120/60 and temperature 98 degrees. Job ID: [id number]
[2018-10-10 13:29] LABS: Anion Gap 13 mmol/L (10-20); BUN (Urea Nitrogen) 56 mg/dL (8.4-25.7); Calc. Creatinine Clearance 51 mL/min (70-130); Calcium 9.4 mg/dL (7.8-10.44); Carbon Dioxide 24 mmol/L (23-31); Chloride 129 mmol/L (98-107); Estimated GFR-MDRD 37; Glucose 165 mg/dL (83-110); Potassium 3.7 mmol/L (3.5-5.1); Sodium 162 mmol/L (136-145)
[2018-10-10] MEDS: Dextrose 5% in Water 1,000 ML IV SCH ×3 (14:20→20:44)
[2018-10-10 18:01] LABS: Anion Gap 11 mmol/L (10-20); BUN (Urea Nitrogen) 51 mg/dL (8.4-25.7); Calc. Creatinine Clearance 59 mL/min (70-130); Calcium 9.1 mg/dL (7.8-10.44); Carbon Dioxide 26 mmol/L (23-31); Chloride 128 mmol/L (98-107); Estimated GFR-MDRD 43; Glucose 143 mg/dL (83-110); Potassium 3.5 mmol/L (3.5-5.1); Sodium 161 mmol/L (136-145)
[2018-10-10] MEDS: Donepezil HCl 10 MG TAB PO SCH (20:23)
[2018-10-10 21:36] LABS: Anion Gap 12 mmol/L (10-20); BUN (Urea Nitrogen) 45 mg/dL (8.4-25.7); Calc. Creatinine Clearance 63 mL/min (70-130); Calcium 8.8 mg/dL (7.8-10.44); Carbon Dioxide 25 mmol/L (23-31); Estimated GFR-MDRD 47; Glucose 146 mg/dL (83-110); Potassium 3.7 mmol/L (3.5-5.1); Sodium 159 mmol/L (136-145)
[2018-10-10 21:37] LABS: Chloride 126 mmol/L (98-107)
[2018-10-11 02:03] LABS: Anion Gap 10 mmol/L (10-20); BUN (Urea Nitrogen) 41 mg/dL (8.4-25.7); Calc. Creatinine Clearance 70 mL/min (70-130); Carbon Dioxide 26 mmol/L (23-31); Chloride 125 mmol/L (98-107); Estimated GFR-MDRD 53; Glucose 172 mg/dL (83-110); Potassium 3.5 mmol/L (3.5-5.1); Sodium 157 mmol/L (136-145)
[2018-10-11] MEDS: Piperacillin/Tazobactam 3.375 GM in Sodium Chloride 0.9% 100 ML IVPB SCH ×4 (03:33→20:25)
[2018-10-11] MEDS: Dextrose 5% in Water 1,000 ML IV SCH ×4 (03:37→17:21)
[2018-10-11 06:07] LABS: Anion Gap 8 mmol/L (10-20); BUN (Urea Nitrogen) 37 mg/dL (8.4-25.7); Calc. Creatinine Clearance 77 mL/min (70-130); Calcium 8.7 mg/dL (7.8-10.44); Carbon Dioxide 26 mmol/L (23-31); Chloride 124 mmol/L (98-107); Estimated GFR-MDRD 59; Glucose 143 mg/dL (83-110); Potassium 3.3 mmol/L (3.5-5.1); Sodium 155 mmol/L (136-145)
[2018-10-11] MEDS ORDERED: Potassium Chloride 20 MEQ TAB PO SCH (06:15)
--- NOTE | 2018-10-11 06:15 | PDOC.FM ---
- Subjective Subjective: VSS. Afebrile. No events per telemetry overnight, biventricular pacing. Patient says he is "better." Denies pain. Denies SOB. AxO x1. - Objective MAR Reviewed: Yes Vital Signs & Weight: Vital Signs (12 hours) Temp Pulse Resp BP Pulse Ox 10/11/18 04:00 97.5 F L 70 14 107/46 L 92 L 10/11/18 00:00 20 98 10/10/18 20:00 97.5 F L 92 20 112/55 L 98 Weight Admit Weight 119.249 kg Weight 120.882 kg I&O: 10/09/18 10/10/18 10/11/18 06:59 06:59 06:59 Intake Total 1219 2590 Balance 1219 2590 Result Diagrams: 10/10/18 04:42 10/11/18 09:07 Additional Labs: Blood culture: final- 03/22 coag neg staph (epidermidis) Urine culture: prelim- presump E coli. Await susceptibility. Phys Exam - Physical Examination dry mouth Respiratory: clear to auscultation bilateral Cardiovascular: RRR (3/6 systolic murmur heard best over LLSB) Gastrointestinal: soft, non-tender, no distention, positive bowel sounds Musculoskeletal: no edema, pulses present Deviation from normal: mutiple bruises along arms, patient anticoagulated Dx/Plan (1) Acute encephalopathy Code(s): G93.40 - ENCEPHALOPATHY, UNSPECIFIED Status: Acute (2) CHF (congestive heart failure) Code(s): I50.9 - HEART FAILURE, UNSPECIFIED Status: Acute (3) Hypothyroidism Code(s): E03.9 - HYPOTHYROIDISM, UNSPECIFIED Status: Acute (4) Anemia Code(s): D64.9 - ANEMIA, UNSPECIFIED Status: Acute (5) Atrial fibrillation Code(s): I48.91 - UNSPECIFIED ATRIAL FIBRILLATION Status: Acute (6) Acute kidney injury Code(s): N17.9 - ACUTE KIDNEY FAILURE, UNSPECIFIED Status: Acute (7) Type 2 diabetes mellitus Status: Acute (8) Generalized anxiety disorder Code(s): F41.1 - GENERALIZED ANXIETY DISORDER Status: Acute (9) Major depressive disorder Code(s): F32.9 - MAJOR DEPRESSIVE DISORDER, SINGLE EPISODE, UNSPECIFIED Status : Acute (10) Chronic hypernatremia Code(s): E87.0 - HYPEROSMOLALITY AND HYPERNATREMIA Status: Acute (11) Open wound of right heel Code(s): S91.301A - UNSPECIFIED OPEN WOUND, RIGHT FOOT, INITIAL ENCOUNTER Status: Acute - Plan Plan: 87-y.o. male w/ complex PMHx, admitted for: 1. Acute encephalopathy on dementia 2/2 UTI vs dehydration - UTI is most likely source at this point. UA w/ abnormalities including blood. - On exam patient looks improved with regards to mental status. He looks more alert, although remains AxO x1. He can respond to questions. He has consistently garbled speech; this is his baseline per [facility]. - Urine culture prelim: presumptive E. Coli >100,000 - Continue Zosyn for empiric coverage. Await susceptibility - Blood in urine, however, [facility] does not wish to pursue work up for patient at this time. 2. Hypernatremia, in setting of severe dehydration - D5W @ 200 mL/hr - Sodium has decreased 8 mEq in past 24 hours. - Urine osm 437. Serum osm 361. Urine sodium 60. - BMP checks q4h. 2b. Hypokalemia - 3.3 this AM. Replete. - Magnesium pending. Replete prn. 3. DICK - Likely pre-renal etiology. Creatinine improving. - Fluid resuscitate. 4. A-fib - Continue anticoagulation of eliquis and aspirin - Continuous telemetry. 5. CHF - ECHO EF 30-35% - Continue home amiodarone - Monitor fluid status closely 6. Hypothyroidism - Continue home synthroid 7. Type 2 diabetes - Insulin sliding scale 8. MICHELLE, MDD - Hold antidepressant for now. May consider restarting tomorrow. 9. Dementia - continue home donepizil, memantine 10. Chronic anemia 2/2 vitamin deficiencies - Continue home B12 vitamin. Hgb improved today from yesterday. 11. Right heel wound - Protective boot on. 12. Swallow dysfunction - Speech eval rec NPO until midnight. - Repeat swallow study this AM. Consider thickened liquid, carb consistent for diabetes diet pending repeat study. Code status: DNR/DNI Ginger Wild MD PGY-1 Disposition/LOS: Continue to monitor as inpatient. Addendum - Attending - Attending Attestation Date/Time: 10/11/18 4631 I personally evaluated the patient and discussed the management with Dr. Wild and team. I agree with the History, Examination, Assessment and Plan documented above with any addition or exceptions noted below.
[2018-10-11] MEDS: Cyanocobalamin (Vitamin B-12) 1,000 MCG TAB PO SCH (09:11)
[2018-10-11] MEDS: Apixaban 5 MG TAB PO SCH ×2 (09:11→20:26)
[2018-10-11] MEDS: Aspirin 81 mg Enteric Coated Tablet PO SCH (09:12)
[2018-10-11] MEDS: Levothyroxine Sodium 50 MCG TAB PO SCH (09:13)
[2018-10-11] MEDS: Atorvastatin Calcium 40 MG TAB PO SCH (09:13)
[2018-10-11] MEDS: Polyethylene Glycol 3350 17 GM Packet PO SCH (09:14)
[2018-10-11 09:31] LABS: Anion Gap 8 mmol/L (10-20); BUN (Urea Nitrogen) 33 mg/dL (8.4-25.7); Calc. Creatinine Clearance 84 mL/min (70-130); Calcium 8.5 mg/dL (7.8-10.44); Carbon Dioxide 26 mmol/L (23-31); Chloride 123 mmol/L (98-107); Estimated GFR-MDRD 65; Glucose 138 mg/dL (83-110); Magnesium 2.4 mg/dL (1.6-2.6); Potassium 3.4 mmol/L (3.5-5.1); Sodium 154 mmol/L (136-145)
[2018-10-11] MEDS: Amiodarone 200 MG TAB PO SCH (11:18)
[2018-10-11] MEDS ORDERED: Dextrose 5% in Water 1,000 ML IV SCH ×2 (12:31→15:07)
[2018-10-11 14:27] LABS: Anion Gap 11 mmol/L (10-20); BUN (Urea Nitrogen) 31 mg/dL (8.4-25.7); Calc. Creatinine Clearance 85 mL/min (70-130); Calcium 8.9 mg/dL (7.8-10.44); Carbon Dioxide 24 mmol/L (23-31); Chloride 121 mmol/L (98-107); Estimated GFR-MDRD 66; Glucose 140 mg/dL (83-110); Potassium 3.8 mmol/L (3.5-5.1); Sodium 152 mmol/L (136-145)
[2018-10-11 17:30] LABS: Anion Gap 10 mmol/L (10-20); BUN (Urea Nitrogen) 31 mg/dL (8.4-25.7); Calc. Creatinine Clearance 87 mL/min (70-130); Calcium 8.8 mg/dL (7.8-10.44); Carbon Dioxide 24 mmol/L (23-31); Chloride 121 mmol/L (98-107); Estimated GFR-MDRD 67; Glucose 121 mg/dL (83-110); Potassium 3.8 mmol/L (3.5-5.1); Sodium 151 mmol/L (136-145)
[2018-10-11] MEDS: Donepezil HCl 10 MG TAB PO SCH (20:26)
[2018-10-11 21:27] LABS: Anion Gap 10 mmol/L (10-20); BUN (Urea Nitrogen) 31 mg/dL (8.4-25.7); Calc. Creatinine Clearance 87 mL/min (70-130); Calcium 8.5 mg/dL (7.8-10.44); Carbon Dioxide 23 mmol/L (23-31); Chloride 122 mmol/L (98-107); Estimated GFR-MDRD 67; Glucose 150 mg/dL (83-110); Potassium 3.7 mmol/L (3.5-5.1); Sodium 151 mmol/L (136-145)
[2018-10-12] MEDS: Piperacillin/Tazobactam 3.375 GM in Sodium Chloride 0.9% 100 ML IVPB SCH ×2 (02:13→08:31)
[2018-10-12] MEDS: Dextrose 5% in Water 1,000 ML IV SCH ×2 (02:13→08:20)
--- NOTE | 2018-10-12 06:06 | PDOC.FM ---
- Subjective Subjective: VSS. Afebrile. No acute events overnight. Patient is able to understand and answer questions in his usual garbled speech. Reports not really eating or drinking anything yesterday. Denies pain, SOB, N/V. He asks when he will be able to go home. - Objective MAR Reviewed: Yes Vital Signs & Weight: Vital Signs (12 hours) Temp Pulse Resp BP Pulse Ox 10/12/18 03:35 98.4 F 86 20 104/57 L 98 10/11/18 23:32 70 103/49 L 10/11/18 20:00 97.9 F 70 20 104/49 L 98 Weight Admit Weight 119.249 kg Weight 125.827 kg I&O: 10/10/18 10/11/18 10/12/18 06:59 06:59 06:59 Intake Total 1219 2590 6270 Balance 1219 2590 6270 Result Diagrams: 10/10/18 04:42 10/12/18 06:04 Phys Exam - Physical Examination Constitutional: NAD HEENT: moist MMs Respiratory: clear to auscultation bilateral Cardiovascular: RRR (his usual 3/6 systolic murmur heard) Gastrointestinal: soft, non-tender, positive bowel sounds Musculoskeletal: no edema, pulses present Psychiatric: normal affect (AxO x1. Baseline. Ability to respond to simple questions has improved.) Dx/Plan (1) Acute encephalopathy Code(s): G93.40 - ENCEPHALOPATHY, UNSPECIFIED Status: Acute (2) CHF (congestive heart failure) Code(s): I50.9 - HEART FAILURE, UNSPECIFIED Status: Acute (3) Hypothyroidism Code(s): E03.9 - HYPOTHYROIDISM, UNSPECIFIED Status: Acute (4) Anemia Code(s): D64.9 - ANEMIA, UNSPECIFIED Status: Acute (5) Atrial fibrillation Code(s): I48.91 - UNSPECIFIED ATRIAL FIBRILLATION Status: Acute (6) Acute kidney injury Code(s): N17.9 - ACUTE KIDNEY FAILURE, UNSPECIFIED Status: Acute (7) Type 2 diabetes mellitus Status: Acute (8) Generalized anxiety disorder Code(s): F41.1 - GENERALIZED ANXIETY DISORDER Status: Acute (9) Major depressive disorder Code(s): F32.9 - MAJOR DEPRESSIVE DISORDER, SINGLE EPISODE, UNSPECIFIED Status : Acute (10) Chronic hypernatremia Code(s): E87.0 - HYPEROSMOLALITY AND HYPERNATREMIA Status: Acute (11) Open wound of right heel Code(s): S91.301A - UNSPECIFIED OPEN WOUND, RIGHT FOOT, INITIAL ENCOUNTER Status: Acute - Plan Plan: 87-y.o. male w/ complex PMHx, admitted for: 1. Acute encephalopathy on dementia 2/2 UTI vs dehydration - UTI is most likely source at this point - Urine culture- Final: E. Coli, Resistant to ampicillin, augmentin, and bactrim. Susceptible to all others. - Transition to PO abx. Cefdinir 300mg PO BID for next 7 days. - Blood in urine, however, [facility] does not wish to pursue work up for patient at this time. 2. Hypernatremia, in setting of severe dehydration - Improving. - D5W @ 100 mL/hr - BMP checks q12h 2b. Hypokalemia - Resolved. 3. DICK - Resolved. - Likely pre-renal etiology. Creatinine at baseline. 4. A-fib - Continue anticoagulation of eliquis and aspirin - Continuous telemetry. 5. CHF - ECHO EF 30-35% - Continue home amiodarone - Monitor fluid status closely 6. Hypothyroidism - Continue home synthroid 7. Type 2 diabetes - Insulin sliding scale 8. MICHELLE, MDD - Holding antidepressant. 9. Dementia - continue home donepizil, memantine - discuss w/ PCP if continuation of these medicines provides more harm/GI side effects than benefit for his dementia. Spoke w/ HPOA and she would like PCP input as she feels she does not have enough information about these drugs to make a decision. 10. Chronic anemia 2/2 vitamin deficiencies - Continue home B12 vitamin. 11. Right heel wound - Protective boot on. 12. Swallow dysfunction - Speech eval: pureed, nectar thick. Carb consistent diet. Appreciate recs. Code status: DNR/DNI Ginger Wild MD PGY-1 Disposition/LOS: Continue to monitor as inpatient. Addendum - Attending - Attending Attestation Date/Time: 10/12/18 8417 I personally evaluated the patient and discussed the management with Dr. Wild and team. I agree with the History, Examination, Assessment and Plan documented above with any addition or exceptions noted below. Verify PO intake from RN. Continue other care. Pending stability and adequate tx of UTI will d/c.
[2018-10-12 06:34] LABS: Anion Gap 8 mmol/L (10-20); BUN (Urea Nitrogen) 28 mg/dL (8.4-25.7); Calc. Creatinine Clearance 93 mL/min (70-130); Calcium 8.5 mg/dL (7.8-10.44); Carbon Dioxide 25 mmol/L (23-31); Chloride 121 mmol/L (98-107); Estimated GFR-MDRD 70; Glucose 106 mg/dL (83-110); Potassium 3.8 mmol/L (3.5-5.1); Sodium 150 mmol/L (136-145)
[2018-10-12] MEDS: Polyethylene Glycol 3350 17 GM Packet PO SCH (08:28)
[2018-10-12] MEDS: Atorvastatin Calcium 40 MG TAB PO SCH (08:30)
[2018-10-12] MEDS: Aspirin 81 mg Enteric Coated Tablet PO SCH (08:30)
[2018-10-12] MEDS: Cyanocobalamin (Vitamin B-12) 1,000 MCG TAB PO SCH (08:30)
[2018-10-12] MEDS: Amiodarone 200 MG TAB PO SCH (08:30)
[2018-10-12] MEDS: Apixaban 5 MG TAB PO SCH ×2 (08:30→20:24)
[2018-10-12] MEDS: Levothyroxine Sodium 50 MCG TAB PO SCH (08:31)
--- NOTE | 2018-10-12 12:32 | PQF ---
CLINICAL DOCUMENTATION IMPROVEMENT CLARIFICATION FORM: ICD-10 Updated PLEASE DO AN ADDENDUM TO THE PROGRESS NOTE WITH ANY DOCUMENTATION UPDATES OR ADDITIONS AND CARRY THROUGH TO DC SUMMARY. THANK YOU. DATE: 10/12/2018 ATTN: Dr. Wild/ Attending Dr. Andre Please exercise your independent, professional judgment in responding to the clarification form. Clinical indicators are provided on the bottom of this form for your review Please check appropriate box(es): [ ] Sepsis due to UTI: [ ] Sepsis due to other: [X] Severe sepsis with acute organ dysfunction of: encephalopathy and acute kidney injury (Examples: encephalopathy, acute kidney failure, other) [ ] Localized infection without sepsis [ ] Other diagnosis [ ] Unable to determine In addition, please specify: Present on Admission (POA): [ X] Yes [ ] No [ ] Unable to determine For continuity of documentation, please document condition throughout progress notes and discharge summary. Thank You. CLINICAL INDICATORS - SIGNS / SYMPTOMS / LABS ER RECORD 10/09: BP 80/41 Pulse 70 Resp. 20 Temp. 99.2 Pt received IV Zosyn and 500ml Sodium chloride IV. DX: AMS, Hypernatremia, Hypotension H&P 10/09: Acute encephalopathy 2/2 UTI. DICK Right heel wound Labs: WBC 14 PN 10/12: Urine culture-Final: E. Coli, Resistant to ampicillin, augmentin, and bactrim. RISKS: H&P 10/09: 87 [facility]/ D[facility]. Acute encephalopathy 2/2 UTI. Hypernatremia, in setting of severe dehydration. DICK. CHF. Right heel wound. TREATMENT: PN 10/11: Continue Zosyn for empiric coverage. PN 10/12: Transition to PO abx. Cefdinir 300mg po BID next 7 days. Thank you, Hanna (This form is maintained as a part of the permanent medical record) 2014 [employer]. All Rights Reserved Hanna Carpenter RN, BSN [email or web address] Office: [phone] [facility]
--- NOTE | 2018-10-12 13:26 | PDOC.EVN ---
Event Note - Event Note Event Note: Spoke w/ David Pimentel, patient's HPOA and daughter. Discussed risks, benefits, and side effects of medications for dementia. Informed Mrs. Pimentel of PCP Dr. Parada's recommendation that stopping Donepezil and Memantine is a reasonable decision to help promote optimization of patient's food and oral intake. HPOA appreciated the information and did decide to stop the donepezil and memantine. Mrs. Pimentel also inquired about patient's hip fracture from 09/28/18. Patient was scheduled to follow up w/ Orthopedist non-operatively. Mrs. Pimentel asked if patient could be seen by orthopedist while in the hospital since transportation from long-term to outpatient appointments is cumbersome and difficult. Informed her author will look into possibility of an ortho consult.
[2018-10-12] MEDS ORDERED: Cefdinir 300 MG CAP PO SCH (15:00)
[2018-10-12 19:45] LABS: Anion Gap 11 mmol/L (10-20); BUN (Urea Nitrogen) 24 mg/dL (8.4-25.7); Calc. Creatinine Clearance 99 mL/min (70-130); Calcium 8.8 mg/dL (7.8-10.44); Carbon Dioxide 23 mmol/L (23-31); Chloride 119 mmol/L (98-107); Estimated GFR-MDRD 75; Glucose 115 mg/dL (83-110); Potassium 4.2 mmol/L (3.5-5.1); Sodium 149 mmol/L (136-145)
[2018-10-12] MEDS: Cefdinir 300 MG CAP PO SCH (20:24)
[2018-10-13] MEDS: Dextrose 5% in Water 1,000 ML IV SCH (02:52)
--- NOTE | 2018-10-13 05:55 | PDOC.FM ---
- Subjective Subjective: VSS overnight. No acute events. Patient tells me he does not feel hungry. Denies chest pain or SOB. He asked when David his daughter would be coming. Reports pain in bilateral legs on sides. Patient was also trying to tell me more this morning; however, his speech is very garbled at baseline and difficult to understand. He is AxO x1. - Objective MAR Reviewed: Yes Vital Signs & Weight: Vital Signs (12 hours) Temp Pulse Resp BP Pulse Ox 10/13/18 05:43 104/65 10/13/18 05:00 98.9 F 89 18 95 10/13/18 00:00 98.9 F 88 18 101/64 94 L 10/12/18 22:00 99.4 F 79 22 H 122/66 97 10/12/18 20:00 98.1 F 77 20 114/58 L 96 Weight Admit Weight 119.249 kg Weight 125.827 kg I&O: 10/11/18 10/12/18 10/13/18 06:59 06:59 06:59 Intake Total 2590 6270 800 Balance 2590 6270 800 Result Diagrams: 10/10/18 04:42 10/13/18 06:03 Phys Exam - Physical Examination Constitutional: NAD HEENT: moist MMs Respiratory: clear to auscultation bilateral Cardiovascular: RRR (systolic 3/6 murmur) Gastrointestinal: soft, non-tender, positive bowel sounds Musculoskeletal: no edema Dx/Plan (1) Acute encephalopathy Code(s): G93.40 - ENCEPHALOPATHY, UNSPECIFIED Status: Acute (2) CHF (congestive heart failure) Code(s): I50.9 - HEART FAILURE, UNSPECIFIED Status: Acute (3) Hypothyroidism Code(s): E03.9 - HYPOTHYROIDISM, UNSPECIFIED Status: Acute (4) Anemia Code(s): D64.9 - ANEMIA, UNSPECIFIED Status: Acute (5) Atrial fibrillation Code(s): I48.91 - UNSPECIFIED ATRIAL FIBRILLATION Status: Acute (6) Acute kidney injury Code(s): N17.9 - ACUTE KIDNEY FAILURE, UNSPECIFIED Status: Acute (7) Type 2 diabetes mellitus Status: Acute (8) Generalized anxiety disorder Code(s): F41.1 - GENERALIZED ANXIETY DISORDER Status: Acute (9) Major depressive disorder Code(s): F32.9 - MAJOR DEPRESSIVE DISORDER, SINGLE EPISODE, UNSPECIFIED Status : Acute (10) Chronic hypernatremia Code(s): E87.0 - HYPEROSMOLALITY AND HYPERNATREMIA Status: Acute (11) Open wound of right heel Code(s): S91.301A - UNSPECIFIED OPEN WOUND, RIGHT FOOT, INITIAL ENCOUNTER Status: Acute - Plan Plan: 87-y.o. male w/ complex PMHx, admitted for: 1. Acute encephalopathy on dementia 2/2 UTI vs dehydration - UTI is most likely source at this point - Urine culture- Final: E. Coli, Resistant to ampicillin, augmentin, and bactrim. Susceptible to all others. - Continue Cefdinir 300mg PO BID for 2 more days - Blood in urine on admission. Repeat UA as outpatient. 2. Hypernatremia, in setting of severe dehydration - Improving. - D/C IVF and assess patient's ability to stay hydrated PO. - BMP checks q12h 2b. Hypokalemia - Resolved. 3. DICK - Resolved. 4. A-fib - Continue anticoagulation of eliquis and aspirin 5. CHF - ECHO EF 30-35% - Continue home amiodarone - Monitor fluid status closely 6. Hypothyroidism - Continue home synthroid 7. Type 2 diabetes - Insulin sliding scale 8. MICHELLE, MDD - Restart antidepressant 9. Dementia - Discontinue memantine, donepezil per HPOA after discussion of risks/benefits of medication 10. Chronic anemia 2/2 vitamin deficiencies - Continue home B12 vitamin. 11. Right heel wound - Protective boot on. 12. Swallow dysfunction - Speech re-eval ordered. They recommend no change; stay on puree, nectar thick diet. - We will need to assess if patient is able to adequately hydrate PO Code status: DNR/DNI Ginger Wild MD PGY-1 Addendum - Attending - Attending Attestation Date/Time: 10/13/18 1214 I personally evaluated the patient and discussed the management with Dr. Wild. I agree with the History, Examination, Assessment and Plan documented above with any addition or exceptions noted below. D/c fluids and monitor. If reasonable intake plan for discharge.
[2018-10-13 06:42] VITALS: BMI 35.2
[2018-10-13 06:49] LABS: Anion Gap 8 mmol/L (10-20); BUN (Urea Nitrogen) 20 mg/dL (8.4-25.7); Calc. Creatinine Clearance 113 mL/min (70-130); Calcium 8.9 mg/dL (7.8-10.44); Carbon Dioxide 25 mmol/L (23-31); Chloride 119 mmol/L (98-107); Estimated GFR-MDRD 88; Glucose 97 mg/dL (83-110); Potassium 3.8 mmol/L (3.5-5.1); Sodium 148 mmol/L (136-145)
[2018-10-13] MEDS: Cefdinir 300 MG CAP PO SCH ×2 (08:34→20:56)
[2018-10-13] MEDS: Cyanocobalamin (Vitamin B-12) 1,000 MCG TAB PO SCH (08:34)
[2018-10-13] MEDS: Aspirin 81 mg Enteric Coated Tablet PO SCH (08:34)
[2018-10-13] MEDS: Apixaban 5 MG TAB PO SCH ×2 (08:34→20:56)
[2018-10-13] MEDS: Atorvastatin Calcium 40 MG TAB PO SCH (08:34)
[2018-10-13] MEDS: Levothyroxine Sodium 50 MCG TAB PO SCH (08:34)
[2018-10-13] MEDS: Amiodarone 200 MG TAB PO SCH (08:35)
[2018-10-13] MEDS: Polyethylene Glycol 3350 17 GM Packet PO SCH (08:35)
[2018-10-13 18:16] LABS: Anion Gap 11 mmol/L (10-20); BUN (Urea Nitrogen) 17 mg/dL (8.4-25.7); Calc. Creatinine Clearance 115 mL/min (70-130); Calcium 9.2 mg/dL (7.8-10.44); Carbon Dioxide 21 mmol/L (23-31); Chloride 119 mmol/L (98-107); Estimated GFR-MDRD 90; Glucose 90 mg/dL (83-110); Potassium 4.2 mmol/L (3.5-5.1); Sodium 147 mmol/L (136-145)
--- NOTE | 2018-10-14 05:46 | PDOC.FM ---
- Subjective Subjective: VSS. Afebrile. Awoke patient from sleep so he was less responsive to me. Answered questions by shaking head yes/no. Denies pain, n/v. - Objective MAR Reviewed: Yes Vital Signs & Weight: Vital Signs (12 hours) Temp Pulse Resp BP Pulse Ox 10/13/18 20:00 108/67 92 L 10/13/18 19:50 98.5 F 84 18 108/67 92 L Weight Admit Weight 119.249 kg Weight 124.7 kg I&O: 10/12/18 10/13/18 10/14/18 06:59 06:59 06:59 Intake Total 6270 1400 490 Balance 6270 1400 490 Result Diagrams: 10/10/18 04:42 10/14/18 06:47 Phys Exam - Physical Examination Constitutional: NAD HEENT: moist MMs Respiratory: no wheezing, clear to auscultation bilateral Cardiovascular: RRR (3/6 systolic murmur, unchanged.) Gastrointestinal: soft, non-tender, no distention, positive bowel sounds Deviation from normal: AxO x1 Dx/Plan (1) Acute encephalopathy Code(s): G93.40 - ENCEPHALOPATHY, UNSPECIFIED Status: Acute (2) CHF (congestive heart failure) Code(s): I50.9 - HEART FAILURE, UNSPECIFIED Status: Acute (3) Hypothyroidism Code(s): E03.9 - HYPOTHYROIDISM, UNSPECIFIED Status: Acute (4) Anemia Code(s): D64.9 - ANEMIA, UNSPECIFIED Status: Acute (5) Atrial fibrillation Code(s): I48.91 - UNSPECIFIED ATRIAL FIBRILLATION Status: Acute (6) Acute kidney injury Code(s): N17.9 - ACUTE KIDNEY FAILURE, UNSPECIFIED Status: Acute (7) Type 2 diabetes mellitus Status: Acute (8) Generalized anxiety disorder Code(s): F41.1 - GENERALIZED ANXIETY DISORDER Status: Acute (9) Major depressive disorder Code(s): F32.9 - MAJOR DEPRESSIVE DISORDER, SINGLE EPISODE, UNSPECIFIED Status : Acute (10) Chronic hypernatremia Code(s): E87.0 - HYPEROSMOLALITY AND HYPERNATREMIA Status: Acute (11) Open wound of right heel Code(s): S91.301A - UNSPECIFIED OPEN WOUND, RIGHT FOOT, INITIAL ENCOUNTER Status: Acute - Plan Plan: 87-y.o. male w/ complex PMHx, admitted for: 1. Acute encephalopathy on dementia 2/2 UTI - UTI is most likely source at this point - Urine culture- Final: E. Coli, Resistant to ampicillin, augmentin, and bactrim. Susceptible to all others. - Continue Cefdinir 300mg PO BID for 1 more days - Blood in urine on admission. Repeat UA as outpatient. 2. Hypernatremia, in setting of severe dehydration - Improving. PO intake. Sodium 147 s/p discontinuation of fluids. - Encourage dietary shakes - BMP checks q12h 2b. Hypokalemia - Resolved. 3. DICK - Resolved. 4. A-fib - Continue anticoagulation of eliquis and aspirin 5. CHF - ECHO EF 30-35% - Continue home amiodarone - Monitor fluid status closely 6. Hypothyroidism - Continue home synthroid 7. Type 2 diabetes - Insulin sliding scale 8. MICHELLE, MDD - Restart antidepressant 9. Dementia - Discontinue memantine, donepezil per HPOA after discussion of risks/benefits of medication 10. Chronic anemia 2/2 vitamin deficiencies - Continue home B12 vitamin. 11. Right heel wound - Protective boot on. 12. Swallow dysfunction - Speech re-eval: no change; stay on puree, nectar thick diet. Code status: DNR/DNI Ginger Wild MD PGY-1 Addendum - Attending - Attending Attestation Date/Time: 10/14/18 5748 I personally evaluated the patient and discussed the management with Dr. Rasmussen. I agree with the History, Examination, Assessment and Plan documented above with any addition or exceptions noted below. Patient's hypernatremia is improved. Will need to encourage adequate po intake at the nursing facility. Pt appears back to baseline.
[2018-10-14 07:29] LABS: Anion Gap 10 mmol/L (10-20); BUN (Urea Nitrogen) 17 mg/dL (8.4-25.7); Calc. Creatinine Clearance 118 mL/min (70-130); Calcium 8.7 mg/dL (7.8-10.44); Carbon Dioxide 22 mmol/L (23-31); Chloride 119 mmol/L (98-107); Estimated GFR-MDRD Greater than 90; Glucose 84 mg/dL (83-110); Potassium 3.8 mmol/L (3.5-5.1); Sodium 147 mmol/L (136-145)
[2018-10-14 07:49] VITALS: BP 110/68; TEMP 98.1
[2018-10-14] MEDS: Levothyroxine Sodium 50 MCG TAB PO SCH (08:48)
[2018-10-14] MEDS: Amiodarone 200 MG TAB PO SCH (08:48)
[2018-10-14] MEDS: Cyanocobalamin (Vitamin B-12) 1,000 MCG TAB PO SCH (08:48)
[2018-10-14] MEDS: Atorvastatin Calcium 40 MG TAB PO SCH (08:48)
[2018-10-14] MEDS: Polyethylene Glycol 3350 17 GM Packet PO SCH (08:48)
[2018-10-14] MEDS: Apixaban 5 MG TAB PO SCH (08:48)
[2018-10-14] MEDS: Aspirin 81 mg Enteric Coated Tablet PO SCH (08:48)
[2018-10-14] MEDS: Cefdinir 300 MG CAP PO SCH (08:48)
[2018-10-14] MEDS ORDERED: Citalopram 20 MG TAB PO SCH (09:00)
== END 2018-10-14 14:10 | DRG 871 ==
LOC: ERS 12:10 → 2NO 15:15 → T4-A 10-12 21:11
PROVIDERS: ADMIT Family Medicine; ATTEND Family Medicine
DX: A41.9 Sepsis, unspecified organism (principal); G93.41 Metabolic encephalopathy; I50.32 Chronic diastolic (congestive) heart failure; E87.0 Hyperosmolality and hypernatremia; N17.9 Acute kidney failure, unspecified; I48.91 Unspecified atrial fibrillation; Z66 Do not resuscitate; E03.9 Hypothyroidism, unspecified; R65.20 Severe sepsis without septic shock; F03.90 Unspecified dementia, unspecified severity, without behavioral disturbance, psychotic disturbance, mood disturbance, and anxiety; I25.10 Atherosclerotic heart disease of native coronary artery without angina pectoris; I11.0 Hypertensive heart disease with heart failure; F41.1 Generalized anxiety disorder; D64.9 Anemia, unspecified; F32.9 Major depressive disorder, single episode, unspecified; Z96.653 Presence of artificial knee joint, bilateral; E87.6 Hypokalemia; E11.9 Type 2 diabetes mellitus without complications; E86.0 Dehydration; Z79.01 Long term (current) use of anticoagulants; I25.2 Old myocardial infarction; Z95.0 Presence of cardiac pacemaker; Z95.1 Presence of aortocoronary bypass graft; Z87.891 Personal history of nicotine dependence
CPT/HCPCS: 36415; 36416; 70450; 71045; 80048; 80053; 80306; 80307; 81003; 81015; 82550; 82553; 83605; 83735; 83880; 83930; 83935; 84300; 84443; 84484; 85025; 87040; 87077; 87086; 87149; 87186; 93005; 96361; 96365; J2543; J3490